=== PATIENT | male | born 1970 | race Hispanic/Latino ===

== ENCOUNTER 2019-06-01 13:47 | Emergency (ER) | payer OTHER ==
--- NOTE | 2019-06-01 15:38 | ULT ---
Exam: Left lower extremity venous ultrasound with Doppler HISTORY: Pain. COMPARISON: None TECHNIQUE: Grayscale, color flow, Doppler imaging and spectral wave form analysis performed left lowe r extremity venous system FINDINGS: There is compressibility, presence of flow and augmentation in the common femoral vein, femoral vein and popliteal vein. Flow and augmentation in the greater saphenous vein, profunda femoral vein and posterior tibial vein. IMPRESSION: No evidence of thrombus in left lower extremity deep venous system
[2019-06-01 15:45] LABS: #Basophils 0.1 thou/uL (0.0-0.2); #Eosinphils 0.2 thou/uL (0.0-0.7); #Lymphocytes 2.2 thou/uL (1.20-3.40); #Monocytes 0.7 thou/uL (0.11-0.59); #Neutrophils 5.3 thou/uL (1.40-6.50); %Basophils 0.8 % (0.0-1.0); %Eosinophils 2.7 % (0.0-10.0); %Lymphocytes 26.4 % (21.0-51.0); Hemoglobin 15.6 g/dL (14.0-18.0); Mean Corpuscular HGB CONC 33.9 g/dL (32.0-36.0); Mean Corpuscular Hemoglobin 27.3 pg (27.0-31.0); Mean Corpuscular Volume 80.5 fL (78.0-98.0); Mean Platelet Volume 6.6 fL (7.4-10.4); Platelet Count 291 thou/uL (130-400); RBC Distribution Width 13.4 % (11.5-14.5); Red Blood Cell (RBC) Count 5.73 mill/uL (4.70-6.10); White Blood Cell (WBC) Count 8.5 thou/uL (4.8-10.8)
[2019-06-01 16:06] LABS: ALT (SGPT) 59 U/L (8-55); AST (SGOT) 43 U/L (5-34); Albumin 4.6 g/dL (3.5-5.0); Alkaline Phosphatase 83 U/L (40-110); Anion Gap 13 mmol/L (10-20); BUN (Urea Nitrogen) 9 mg/dL (8.4-25.7); Bilirubin, Total 0.6 mg/dL (0.2-1.2); Calc. Creatinine Clearance 0 mL/min (70-130); Carbon Dioxide 25 mmol/L (22-29); Chloride 102 mmol/L (98-107); Estimated GFR-MDRD Greater than 90; Globulin 3.8 g/dL (2.4-3.5); Glucose 97 mg/dL (70-105); Protein, Total 8.4 g/dL (6.0-8.3); Sodium 136 mmol/L (136-145)
== END 2019-06-01 16:05 | disposition home or self-care (01) ==
LOC: ERS 13:47
DX: L03.116 Cellulitis of left lower limb (principal); I10 Essential (primary) hypertension; F17.210 Nicotine dependence, cigarettes, uncomplicated; Z79.899 Other long term (current) drug therapy
CPT/HCPCS: 36415; 80053; 85025; 85379

== ENCOUNTER 2019-06-21 19:59 | Emergency (ER) | payer OTHER | END 2019-06-21 21:03 | disposition home or self-care (01) | LOC: ERS 19:59 → EEVIPCON 19:59 → ERS 21:03 | DX: I83.892 Varicose veins of left lower extremity with other complications (principal); Z79.899 Other long term (current) drug therapy | CPT/HCPCS: 99283 ==